=== PATIENT | female | born 1990 | race Asian ===

== ENCOUNTER 2019-02-24 19:19 | Observation (INO) | payer OTHER ==
[2018-07-24 17:15] VITALS: BP 97/64
[~2019-02-24 19:19] MED LIST: DIPH25CA58 PO; NAPR500T8 PO; ONDA4TAB10 SL; OXYC1TAB15 PO; PRED20TA PO
[2019-02-24] MEDS ORDERED: IV RINGERS,LACTATED 1000ML 1,000 ML IV SCH (19:21)
[2019-02-24] MEDS ORDERED: ACETAMINOPHEN 325 MG TABLET. PO PRN (19:30)
[2019-02-24 19:47] LABS: BILIRUBIN,URINE NEGATIVE (NEG); CLARITY,URINE CLEAR; COLOR,URINE YELLOW; NITRITE,URINE NEGATIVE (NEG); PROTEIN,URINE NEGATIVE (NEG-TRACE)
[2019-02-24 19:54] LABS: AMORPHOUS SEDIMENT,UR PRESENT /HPF; BACTERIA,URINE FEW /HPF (0-FEW); SQUAMOUS EPITHELIAL CELL,UR MANY /LPF
[2019-02-24] MEDS ORDERED: hydrOXYzine PAMOATE 25 MG CAPSULE PO ONE (21:30)
== END 2019-02-24 22:15 | disposition home or self-care (01) ==
LOC: 3 SO LND 19:19 → MERGE 19:19
PROVIDERS: ADMIT Specialist; ATTEND Specialist
DX: O62.9 Abnormality of forces of labor, unspecified (principal); O99.89 Other specified diseases and conditions complicating pregnancy, childbirth and the puerperium; M54.9 Dorsalgia, unspecified; Z3A.00 Weeks of gestation of pregnancy not specified
CPT/HCPCS: 81001; 87086; G0378; G0379; J7120; Q0177

== ENCOUNTER 2019-02-25 16:12 | Observation (INO) | payer OTHER ==
[2016-05-24 20:00] VITALS: BP 113/72
[2019-02-25] MEDS ORDERED: IV RINGERS,LACTATED 1000ML 1,000 ML IV SCH (16:59)
[2019-02-25] MEDS ORDERED: hydrOXYzine 25 MG TABLET PO PRN (17:00)
[2019-02-25 17:23] LABS: BILIRUBIN,URINE NEGATIVE (NEG); CLARITY,URINE CLEAR; COLOR,URINE YELLOW; NITRITE,URINE NEGATIVE (NEG); PROTEIN,URINE NEGATIVE (NEG-TRACE); UROBILINOGEN,URINE 0.2 mg/dL (0.2 mg/dL)
[2019-02-25 17:39] LABS: BACTERIA,URINE FEW /HPF (0-FEW); SQUAMOUS EPITHELIAL CELL,UR FEW /LPF; WBC,URINE OCC /HPF (0-4)
== END 2019-02-25 19:30 | disposition home or self-care (01) ==
LOC: 3 SO LND 16:12
PROVIDERS: ADMIT Specialist; ATTEND Specialist
DX: O46.93 Antepartum hemorrhage, unspecified, third trimester (principal); Z3A.38 38 weeks gestation of pregnancy
CPT/HCPCS: 81001; 87086; G0378; G0379; J7120

== ENCOUNTER 2019-03-03 05:45 | Inpatient (IN) | payer OTHER ==
[~2019-03-03] VITALS: Ht 165.1 cm; Wt 73.5 kg
[2019-03-03] VITALS (7 sets, daily range): BP systolic 91–118; BP diastolic 51–71
[2019-03-03] MEDS ORDERED: OXYTOCIN 30 UNIT/500 ML PREMIX 500 ML IV PRN ×2 (06:00→09:00)
[2019-03-03] MEDS ORDERED: CITRIC ACID/SODIUM CITRATE 30 ML SOLUTION. PO ONE (06:00)
[2019-03-03] MEDS ORDERED: 0.9 % SODIUM CHLORIDE 10 ML DISP.SYRIN. IV PRN ×2 (06:00→08:45)
[2019-03-03] MEDS ORDERED: IV RINGERS,LACTATED 1000ML 1,000 ML IV SCH (06:00)
[2019-03-03 06:41] LABS: BILIRUBIN,URINE NEGATIVE (NEG); CLARITY,URINE CLEAR; COLOR,URINE YELLOW; NITRITE,URINE NEGATIVE (NEG); PH,URINE 7.5; PROTEIN,URINE NEGATIVE (NEG-TRACE); UROBILINOGEN,URINE 0.2 mg/dL (0.2 mg/dL)
[2019-03-03 06:48] LABS: BARBITURATES NEG (NEG); BENZODIAZEPINES NEG (NEG); CANNABINOIDS NEG (NEG); COCAINE NEG (NEG); METHADONE NEG (NEG); OPIATES NEG (NEG); PHENCYCLIDINE NEG (NEG)
[2019-03-03 06:53] LABS: AMPHETAMINE/METHAMPHETAMINE NEG (NEG)
[2019-03-03 06:54] LABS: HEMOGLOBIN 11.3 g/dL (12.0-15.5); RED BLOOD COUNT 3.82 x10^6/uL (3.50-5.40); RED CELL DISTRIBUTION WIDTH 12.9 % (11.5-14.5); WHITE BLOOD COUNT 7.8 x10^3/uL (4.0-11.0)
[2019-03-03 06:59] LABS: BACTERIA,URINE MODERATE /HPF (0-FEW); RBC,URINE OCC /HPF (0-2); SQUAMOUS EPITHELIAL CELL,UR MANY /LPF
[2019-03-03] MEDS ORDERED: ceFAZolin 2GM PREMIX 2 GM/50 ML BAG IV ONE (07:14)
[2019-03-03] MEDS: IV RINGERS,LACTATED 1000ML 1,000 ML IV SCH ×4 (07:15→21:29)
[2019-03-03] MEDS ORDERED: FAMOTIDINE 20 MG/2 ML VIAL ONE (07:44)
[2019-03-03] MEDS ORDERED: ePHEDrine PF IN SALINE 50 MG/10 ML SYRINGE. IV ONE (07:44)
[2019-03-03] MEDS ORDERED: PHENYLEPHRINE in 0.9% NACL PF 1 MG/10 ML SYRINGE. IV ONE (07:44)
[2019-03-03] MEDS ORDERED: METOCLOPRAMIDE HCL 10 MG/2 ML VIAL. ONE (07:45)
[2019-03-03] MEDS ORDERED: ONDANSETRON PF 4 MG/2 ML VIAL. ONE (07:45)
[2019-03-03] MEDS ORDERED: DEXAMETHASONE SOD PHOS 4 MG/ML VIAL ONE (07:45)
[2019-03-03] MEDS ORDERED: OXYTOCIN 10 UNIT/ML VIAL. ONE (07:46)
[2019-03-03] MEDS ORDERED: MORPHINE PF 5 MG/10 ML VIAL. ONE (07:47)
[2019-03-03] MEDS ORDERED: fentaNYL PF VIAL 100 MCG/2 ML VIAL ONE (07:47)
--- NOTE | 2019-03-03 08:36 | PDOC1 ---
OB - History Hx of Present Care: Good Care Obstetrical Complications: None Medical Complications: None Past Family/Social History * Past Medical, Surgical, Family and Obstetric Histories reviewed from chart. Blood Type: B+ Rubella: Immune RPR/VDRL: Negative GBS Status: Negative HBsAG: Negative OB - Chief Complaint & HPI Date of Admission: Date of Admission: Mar 03, 2019 at 05:45 Chief Complaint/History : 3 Para: 2 EDC: Mar 10, 2019 Reason for admission: section Indication for : desires repeat Admission Nurse Assessment Rev: Yes OB - Admission Exam Physical Exam Vitals: VS - Last 72 Hours, by Label Date Time Temp Pulse Resp B/P (MAP) Pulse Ox O2 Delivery O2 Flow Rate FiO2 03/03/19 06:29 99.1 69 18 118/71 (87) 98 Room Air 99.1 Heart: Regular Rate Lungs: Clear, Equal Abdomen: Gravid Extremities: Normal Pulses, No tenderness or swelling Reflexes: Normal Effacement: 0% Membranes: Intact Heart Rate: Normal Accelerations: Accelerations Present Decelerations: No decelerations Short Term Variability: Present Contractions on Admission: >10 Minutes Apart Intensity: Mild Assessment/Plan Assessment/Plan TIUP Desire RC/S PRERNA COULTER MD Mar 03, 2019 08:35
[2019-03-03] MEDS ORDERED: MAG HYDROX/ALUMINUM HYD/SIMETH 30 ML ORAL.SUSP PO PRN (08:45)
[2019-03-03] MEDS ORDERED: MAGNESIUM HYDROXIDE 2,400 MG/30 ML ORAL.SUSP. PO PRN (08:45)
[2019-03-03] MEDS ORDERED: diphenhydrAMINE ORAL ELIXIR 12.5 MG/5 ML ML PO PRN (08:45)
[2019-03-03] MEDS ORDERED: ZOLPIDEM 5 MG TABLET. PO PRN (08:45)
[2019-03-03] MEDS ORDERED: ONDANSETRON PF 4 MG/2 ML VIAL. IV PRN (08:45)
[2019-03-03] MEDS ORDERED: MMR per PROTOCOL. MC PRN (08:45)
[2019-03-03] MEDS ORDERED: oxyCODONE/APAP 5/325 1 TAB TABLET PO PRN (08:45)
[2019-03-03] MEDS ORDERED: SIMETHICONE 80 MG TAB.CHEW PO PRN (08:45)
[2019-03-03] MEDS: KETOROLAC 30 MG/ML VIAL. IV PRN ×2 (10:18→22:33)
[2019-03-03] MEDS: IBUPROFEN 400 MG TABLET. PO SCH ×2 (14:00→22:00)
[2019-03-03] MEDS ORDERED: ceFAZolin SODIUM 1 GM in IV DEXTROSE 5% 50 ML IV SCH (14:00)
[2019-03-03] MEDS: ceFAZolin SODIUM IV Push 1 GM VIAL. IVP SCH ×2 (14:12→21:30)
[2019-03-03] MEDS: FERROUS SULFATE 325 MG TABLET. PO SCH (17:00)
[2019-03-04 01:00] VITALS: BP 91/50
[2019-03-04] MEDS: KETOROLAC 30 MG/ML VIAL. IV PRN (04:54)
[2019-03-04 05:25] LABS: BASO % 1 % (0-3); EOS # 0.1 x10^3/uL (0.0-0.7); EOS % 1 % (0-3); HEMATOCRIT 25.2 % (36.0-47.0); HEMOGLOBIN 8.9 g/dL (12.0-15.5); LYMPH # 1.7 x10^3/uL (1.0-4.8); LYMPH % 18 % (24-48); MEAN CORPUSCULAR HEMOGLOBIN 30 pg (25-35); MEAN CORPUSCULAR HGB CONC 35 g/dL (31-37); MEAN CORPUSCULAR VOLUME 84 fL (79-100); MONO # 0.6 x10^3/uL (0.0-1.1); MONO % 7 % (0-9); NEUT # 6.8 x10^3uL (1.8-7.7); NEUT % 74 % (31-73); PLATELET COUNT 137 x10^3/uL (140-400); RED CELL DISTRIBUTION WIDTH 12.8 % (11.5-14.5); WHITE BLOOD COUNT 9.3 x10^3/uL (4.0-11.0)
[2019-03-04] MEDS: IBUPROFEN 400 MG TABLET. PO SCH ×3 (06:00→21:54)
[2019-03-04 06:05] VITALS: BP 102/69
[2019-03-04] MEDS: ceFAZolin SODIUM IV Push 1 GM VIAL. IVP SCH (06:50)
[2019-03-04] MEDS: FERROUS SULFATE 325 MG TABLET. PO SCH ×2 (07:47→17:14)
[2019-03-04] MEDS: DOCUSATE SODIUM 100 MG CAPSULE. PO PRN (07:47)
[2019-03-04] MEDS: oxyCODONE/APAP 5/325 1 TAB TABLET PO PRN ×3 (07:47→17:14)
[2019-03-04 11:30] VITALS: BP 104/68
[2019-03-04 16:13] VITALS: BP 99/62
--- NOTE | 2019-03-04 18:27 | PDOC ---
OB Progress Note Date of Service 03/04/19 Time of Evaluation 1825 Notes Pt. feeling well. No complaints. Lab Laboratory Tests Test 03/03/19 06:00 03/03/19 06:15 03/04/19 04:35 White Blood Count 7.8 x10^3/uL (4.0-11.0) 9.3 x10^3/uL (4.0-11.0) Red Blood Count 3.82 x10^6/uL (3.50-5.40) 3.00 x10^6/uL (3.50-5.40) Hemoglobin 11.3 g/dL (12.0-15.5) 8.9 g/dL (12.0-15.5) Hematocrit 32.0 % (36.0-47.0) 25.2 % (36.0-47.0) Mean Corpuscular Volume 84 fL (79-100) 84 fL (79-100) Mean Corpuscular Hemoglobin 30 pg (25-35) 30 pg (25-35) Mean Corpuscular Hemoglobin Concent 35 g/dL (31-37) 35 g/dL (31-37) Red Cell Distribution Width 12.9 % (11.5-14.5) 12.8 % (11.5-14.5) Platelet Count 162 x10^3/uL (140-400) 137 x10^3/uL (140-400) Treponema pallidum Antibody Nonreactive (Nonreactive) Urine Collection Type Unknown Urine Color Yellow Urine Clarity Clear Urine pH 7.5 Urine Specific Smyer 1.015 Urine Protein Negative mg/dL (NEG-TRACE) Urine Glucose (UA) Negative mg/dL (NEG) Urine Ketones (Stick) Negative mg/dL (NEG) Urine Blood Negative (NEG) Urine Nitrite Negative (NEG) Urine Bilirubin Negative (NEG) Urine Urobilinogen Dipstick 0.2 mg/dL (0.2 mg/dL) Urine Leukocyte Esterase Moderate (NEG) Urine RBC Occ /HPF (0-2) Urine WBC 5-10 /HPF (0-4) Urine Squamous Epithelial Cells Many /LPF Urine Bacteria Moderate /HPF (0-FEW) Urine Mucus Slight /LPF Urine Opiates Screen Neg (NEG) Urine Methadone Screen Neg (NEG) Urine Barbiturates Neg (NEG) Urine Phencyclidine Screen Neg (NEG) Urine Amphetamine/Methamphetamine Neg (NEG) Urine Benzodiazepines Screen Neg (NEG) Urine Cocaine Screen Neg (NEG) Urine Cannabinoids Screen Neg (NEG) Urine Ethyl Alcohol Neg (NEG) Neutrophils (%) (Auto) 74 % (31-73) Lymphocytes (%) (Auto) 18 % (24-48) Monocytes (%) (Auto) 7 % (0-9) Eosinophils (%) (Auto) 1 % (0-3) Basophils (%) (Auto) 1 % (0-3) Neutrophils # (Auto) 6.8 x10^3uL (1.8-7.7) Lymphocytes # (Auto) 1.7 x10^3/uL (1.0-4.8) Monocytes # (Auto) 0.6 x10^3/uL (0.0-1.1) Eosinophils # (Auto) 0.1 x10^3/uL (0.0-0.7) Basophils # (Auto) 0.0 x10^3/uL (0.0-0.2) Laboratory Tests Test 03/04/19 04:35 White Blood Count 9.3 x10^3/uL (4.0-11.0) Red Blood Count 3.00 x10^6/uL (3.50-5.40) Hemoglobin 8.9 g/dL (12.0-15.5) Hematocrit 25.2 % (36.0-47.0) Mean Corpuscular Volume 84 fL (79-100) Mean Corpuscular Hemoglobin 30 pg (25-35) Mean Corpuscular Hemoglobin Concent 35 g/dL (31-37) Red Cell Distribution Width 12.8 % (11.5-14.5) Platelet Count 137 x10^3/uL (140-400) Neutrophils (%) (Auto) 74 % (31-73) Lymphocytes (%) (Auto) 18 % (24-48) Monocytes (%) (Auto) 7 % (0-9) Eosinophils (%) (Auto) 1 % (0-3) Basophils (%) (Auto) 1 % (0-3) Neutrophils # (Auto) 6.8 x10^3uL (1.8-7.7) Lymphocytes # (Auto) 1.7 x10^3/uL (1.0-4.8) Monocytes # (Auto) 0.6 x10^3/uL (0.0-1.1) Eosinophils # (Auto) 0.1 x10^3/uL (0.0-0.7) Basophils # (Auto) 0.0 x10^3/uL (0.0-0.2) Medications Current Medications Ringer's Solution 1,000 ml @ 1,000 mls/hr Q1H IV Last administered on 03/03/19at 06:24; Start 03/03/19 at 06:00; Stop 03/03/19 at 06:59; Status DC Ringer's Solution 1,000 ml @ 125 mls/hr Q8H IV Last administered on 03/03/19at 21:29; Start 03/03/19 at 06:00; Stop 03/04/19 at 15:14; Status DC Cefazolin Sodium/ Dextrose 50 ml @ 100 mls/hr 1X ONCE IV Last administered on 03/03/19at 06:25; Start 03/03/19 at 06:00; Stop 03/03/19 at 06:29; Status DC Citric Acid/ Sodium Citrate (Bicitra) 30 ml 1X ONCE PO Last administered on 03/03/19at 07:12; Start 03/03/19 at 06:00; Stop 03/03/19 at 06:01; Status DC Sodium Chloride (Normal Saline Flush) 3 ml QSHIFT PRN IV AFTER MEDS AND BLOOD DRAWS; Start 03/03/19 at 06:00; Stop 03/04/19 at 15:14; Status DC Oxytocin/Sodium Chloride 500 ml @ 0 mls/hr CONT PRN PRN IV Post delivery bleeding; Start 03/03/19 at 06:00; Stop 03/04/19 at 15:14; Status DC Phenylephrine HCl (PHENYLEPHRINE in 0.9% NACL PF) 1 mg STK-MED ONCE IV ; Start 03/03/19 at 07:44; Stop 03/03/19 at 07:45; Status DC Ephedrine Sulfate (ePHEDrine PF IN SALINE SYRINGE) 50 mg STK-MED ONCE IV ; Start 03/03/19 at 07:44; Stop 03/03/19 at 07:45; Status DC Famotidine (Pepcid Vial) 20 mg STK-MED ONCE .ROUTE ; Start 03/03/19 at 07:44; Stop 03/03/19 at 07:45; Status DC Metoclopramide HCl (Reglan Vial) 10 mg STK-MED ONCE .ROUTE ; Start 03/03/19 at 07:45; Stop 03/03/19 at 07:46; Status DC Ondansetron HCl (Zofran) 4 mg STK-MED ONCE .ROUTE ; Start 03/03/19 at 07:45; Stop 03/03/19 at 07:46; Status DC Dexamethasone Sodium Phosphate (Decadron) 4 mg STK-MED ONCE .ROUTE ; Start 03/03/19 at 07:45; Stop 03/03/19 at 07:46; Status DC Oxytocin (Pitocin) 10 unit STK-MED ONCE .ROUTE ; Start 03/03/19 at 07:46; Stop 03/03/19 at 07:47; Status DC Fentanyl Citrate (Fentanyl 2ml Vial) 100 mcg STK-MED ONCE .ROUTE ; Start 03/03/19 at 07:47; Stop 03/03/19 at 07:48; Status DC Morphine Sulfate (Morphine Preservative Free) 5 mg STK-MED ONCE .ROUTE ; Start 03/03/19 at 07:47; Stop 03/03/19 at 07:48; Status DC Sodium Chloride (Normal Saline Flush) 3 ml QSHIFT PRN IV AFTER MEDS AND BLOOD DRAWS; Start 03/03/19 at 08:45; Status Cancel Oxytocin/Sodium Chloride 500 ml @ 125 mls/hr CONT PRN IV EXCESSIVE POST- BLEEDING; Start 03/03/19 at 09:00; Stop 03/03/19 at 09:01; Status DC Ibuprofen (Motrin) 800 mg Q8HRS PO Last administered on 03/04/19at 12:40; Start 03/03/19 at 14:00 Ondansetron HCl (Zofran) 4 mg PRN Q6HRS PRN IV NAUSEA/VOMITING; Start 03/03/19 at 08:45; Stop 03/04/19 at 15:14; Status DC Docusate Sodium (Colace) 100 mg PRN BID PRN PO HARD STOOLS Last administered on 03/04/19at 07:47; Start 03/03/19 at 08:45 Magnesium Hydroxide (Milk Of Magnesia) 2,400 mg PRN DAILY PRN PO CONSTIPATION; Start 03/03/19 at 08:45 Al Hydroxide/Mg Hydroxide (Mylanta Plus Xs) 30 ml PRN Q4HRS PRN PO HEARTBURN / GAS; Start 03/03/19 at 08:45 Simethicone (Gas-X) 80 mg PRN AFTMEALHC PRN PO GAS / BLOATING; Start 03/03/19 at 08:45 Diphenhydramine HCl (Benadryl Oral Elixir) 12.5 mg PRN Q6HRS PRN PO ITCHING; Start 03/03/19 at 08:45 Ferrous Sulfate (Feosol) 325 mg BIDWMEALS PO Last administered on 03/04/19at 17:14; Start 03/03/19 at 17:00 Zolpidem Tartrate (Ambien) 5 mg PRN QHS PRN PO INSOMNIA, MAY REPEAT X1; Start 03/03/19 at 08:45 Info (Do NOT chart on this placeholder) 1 ea PRN 1X PRN MC SEE COMMENTS; Start 03/03/19 at 08:45; Stop 03/04/19 at 15:14; Status DC Info (Do NOT chart on this placeholder) 1 ea PRN 1X PRN MC SEE COMMENTS; Start 03/03/19 at 08:45; Stop 03/04/19 at 15:14; Status DC Oxycodone/ Acetaminophen (Percocet 5/325) 1 tab PRN Q4HRS PRN PO MILD PAIN 1-3 Last administered on 03/04/19at 17:14; Start 03/03/19 at 08:45 Oxycodone/ Acetaminophen (Percocet 5/325) 2 tab PRN Q4HRS PRN PO MODERATE PAIN, SEVERE PAIN; Start 03/03/19 at 08:45 Cefazolin Sodium 1 gm/Dextrose 50 ml @ 100 mls/hr Q8HRS IV ; Start 03/03/19 at 14:00; Status UNV Cefazolin Sodium (Ancef) 1 gm Q8HRS IVP Last administered on 03/04/19at 06:50; Start 03/03/19 at 14:00; Stop 03/04/19 at 06:01; Status DC Ketorolac Tromethamine (Toradol 30mg Vial) 30 mg PRN Q6HRS PRN IV PAIN Last administered on 03/04/19at 04:54; Start 03/03/19 at 10:15; Stop 03/04/19 at 15:14; Status DC Cefazolin Sodium/ Dextrose (Ancef 2gm Premix) 2 gm STK-MED ONCE IV ; Start 03/03/19 at 07:14; Stop 03/04/19 at 08:43; Status DC Active Scripts Active Zofran Odt (Ondansetron) 4 Mg Tab.rapdis 1 Tab SL Q8HRS Benadryl (Diphenhydramine Hcl) 25 Mg Capsule 25 Mg PO Q6-8HRS PRN Prednisone 20 Mg Tablet 2 Tab PO DAILY PRN Naproxen 500 Mg Tablet.dr 1 Tab PO BID Percocet 5-325 Mg Tablet (Oxycodone/Acetaminophen) 1 Each Tablet 1-2 Tab PO Q4-6HRS Exam Abd: soft, non tender, fundus firm Prevena wound vac in place Assessment POD#1 s/p c/s Plan of Care: Continue current Tx, Mgmt ABHINAV SHAIKH Jr, MD Mar 04, 2019 18:27
[2019-03-04 22:06] VITALS: BP 103/60
[2019-03-05 05:13] VITALS: BP 100/68
[2019-03-05] MEDS: FERROUS SULFATE 325 MG TABLET. PO SCH ×2 (08:40→17:40)
[2019-03-05] MEDS: DOCUSATE SODIUM 100 MG CAPSULE. PO PRN (08:40)
[2019-03-05 09:50] VITALS: BP 90/60
--- NOTE | 2019-03-05 12:36 | PDOC ---
Provider Note Provider Note Doing well VSS Dressing CDI FU in AM PRERNA COULTER MD Mar 05, 2019 12:36
[2019-03-05 14:45] VITALS: BP 105/72
[2019-03-05] MEDS: IBUPROFEN 400 MG TABLET. PO SCH (14:45)
[2019-03-05] MEDS: oxyCODONE/APAP 5/325 1 TAB TABLET PO PRN (15:39)
[2019-03-05 18:16] VITALS: BP 100/76
--- NOTE | 2019-03-05 20:22 | NUR ---
Pt stated she wanted to go outside to smoke in her car, informed nonsmoking facility. Pt unhappy about this as she stated "someone let me do it before". Pt mother says she should be allowed to smoke if she wants. A half hour later pt stated was going down to cafeteria with family.
[2019-03-05 23:05] VITALS: BP 93/58
[2019-03-06] MEDS: IBUPROFEN 400 MG TABLET. PO SCH ×2 (01:04→11:44)
[2019-03-06] MEDS: oxyCODONE/APAP 5/325 1 TAB TABLET PO PRN (01:04)
[2019-03-06 06:13] VITALS: BP 106/65
[2019-03-06 11:30] VITALS: BP 99/68
[2019-03-06] MEDS: DOCUSATE SODIUM 100 MG CAPSULE. PO PRN (11:43)
[2019-03-06] MEDS: FERROUS SULFATE 325 MG TABLET. PO SCH (11:43)
--- NOTE | 2019-03-06 15:39 | PDOC ---
BRIEF OPERATIVE NOTE Date: Mar 03, 2019 Pre-Op Diagnosis TIUP RC/S Post-Op Diagnosis Same Procedure Performed RLTC/S Surgeon Luis F Anesthesia Type: General Blood Loss 700cc Specimens Obtained None Findings Female 7# Nl UTO Complications None PRERNA COULTER MD Mar 06, 2019 15:39
--- NOTE | 2019-03-06 15:41 | PDOC3 ---
OB DISCHARGE SUMMARY DATE OF ADMISSION: 03/03/19 DATE OF DISCHARGE: 03/06/16 REASON FOR ADMISSION: section PROCEDURES: Ultrasound INTRAPARTUM PROCEDURES: : Low Cerv Trans PROCEDURES: None OPERATIONS: None DISCHARGE DIAGNOSIS: Term Delivered DISCHARGE INFORMATION: Activity HOSPITAL COURSE Unremarkable CONDITION AT DISCHARGE Stable PRERNA COULTER MD Mar 06, 2019 15:41
[2019-03-06] MEDS ORDERED: OXYC1TAB15 PO (15:44)
[2019-03-06] MEDS ORDERED: NAPR-514 PO (15:44)
--- NOTE | 2019-03-06 15:47 | NUR ---
Discharge Discharge instructions given to patient and . Prevena dressing removed per DR Kerns, patient tolerated well. Incisional care given at this time. To follow up in 1 week.
[2019-03-06 15:51] VITALS: BP 106/68
--- NOTE | 2019-03-06 20:05 | OP ---
DATE OF SURGERY: 03/03/2019 PREOPERATIVE DIAGNOSIS: Term intrauterine , desires repeat section. POSTOPERATIVE DIAGNOSIS: Repeat section. PROCEDURE: Repeat low transverse . SURGEON: Carlos Kerns M.D. MANUFACTURING PRODUCTION MANAGER: None. ANESTHESIA: Regional. ESTIMATED BLOOD LOSS: 700 mL. FLUIDS: Crystalloids. FINDINGS: Female , Apgars 8, 9 and 9. Weight 7 pounds. Normal uterus, tubes and ovaries. SPECIMENS: None. COMPLICATIONS: None. CONDITION: Stable. DESCRIPTION OF PROCEDURE: After risks, benefits, indications, alternatives discussed in detail with the patient, the patient was brought to OR theater, placed in supine position with left lateral uterine displacement. After adequate regional anesthesia, the patient was prepped and draped in usual sterile manner. Previous Pfannenstiel incision was taken out in total with Bovie cautery. Subcutaneous tissue was taken down with Bovie cautery. Rectus fascia was nicked in midline and extended laterally in each direction with Bovie cautery. Upper edge of rectus fascia was grasped x 2 with Roberta clamps, elevated above the rectus muscle, both bluntly and sharply with Bovie cautery and gloved hand. The same procedure was carried on lower edge of rectus fascia. Rectus muscle was entered sharply with the scalpel secondary to the dense scar tissue at the midline. Parietal peritoneum was entered bluntly with gloved hand. Rectus muscle was taken up superiorly and inferiorly with Bovie cautery. The bladder flap was created with Metzenbaum scissors. The Armando retractor was placed within the pelvic cavity. Sponges were placed in the gutters bilaterally. Low transverse hysterotomy incision was made sharply with the scalpel, extended laterally and upwardly with gloved hand. Gloved hand was placed in the lower uterine segment, used to elevate the head. Secondary to the nature of the , forceps blade was used to place in the lower uterine segment and below the 's head with fundal pressure from the payroll administrative assistant. was delivered on the anterior abdominal wall. Infant cried spontaneously and moved all extremities. Cord was doubly clamped, transected the cord between two clamps. Infant was handed to nursing care in attendance. Cord blood sample was taken. Placenta delivered spontaneously intact, 3-vessel cord. Uterus was wiped free of any adherent membranes. Low transverse hysterotomy incision was reapproximated with 0 Monocryl in a running locking manner, imbricated with 0 Monocryl in vertical mattress stitch fashion. Kareen was placed in the bed of the bladder to prevent any additional oozing. Sponges were removed from the gutters. The area was inspected and noted to be free of any debris or blood. Armando retractor was removed. Rectus muscles reapproximated with 3-0 Vicryl horizontal mattress stitch fashion. Rectus fascia was reapproximated with transfixed 0 PDS. Subcutaneous tissue was irrigated copiously with warm normal saline. Skin was reapproximated with Insorb nicolle. Sponge, needle and instrument counts correct x 2 per nursing staff. CARLOS KERNS MD DR: STEPHENIE/major JOB#: [id number] / [id number]
[2019-03-18] MEDS ORDERED: AMOX1TAB61 PO (08:58)
[2019-03-18] MEDS ORDERED: NAPR-514 PO (08:58)
== END 2019-03-06 18:23 | disposition home or self-care (01) | DRG 787 ==
LOC: 3 SO LND 05:45 → 3 NORTH 11:30
PROVIDERS: ADMIT Specialist; ATTEND Specialist
PROC: 10D00Z1 Extraction of Products of Conception, Low, Open Approach (ICD-10-PCS; principal; 2019-03-06)
DX: O34.211 Maternal care for low transverse scar from previous cesarean delivery (principal); D62 Acute posthemorrhagic anemia; Z37.0 Single live birth; Z3A.00 Weeks of gestation of pregnancy not specified
CPT/HCPCS: 36415; 80307; 81001; 85025; 85027; 86592; 86850; 86900; 86901; 87086; J0171; J0690; J0696; J1100; J1885; J2270; J2370; J2405; J2590; J2765; J3010; J3490; J7120

== ENCOUNTER 2019-03-19 14:37 | Emergency (ER) | payer OTHER ==
[~2019-03-19] VITALS: Ht 162.6 cm; Wt 68.0 kg
[~2019-03-19 14:37] MED LIST changes: +AMOX1TAB61 PO; +NAPR-514 PO
[2019-03-19 14:40] VITALS: BP 125/68
[2019-03-19] MEDS ORDERED: CETIRIZINE HCL 10 MG TABLET. PO STA (15:22)
--- NOTE | 2019-03-19 15:33 | PHYS DOC ---
Past Medical History Past Medical History: No Pertinent History Past Surgical History: Alcohol Use: None Drug Use: None Adult General Chief Complaint Chief Complaint: SKIN RASH/ABSCESS HPI HPI Patient is a 28 year old female who presents to the ED with an itchy rash that begun three days ago. Patient also states she does not know what's causing the rash. She does not speak Azeri either. 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 I looked back through previous charts, patient had a baby on March 03, 2019. On March 16, 2019 she was admitted for mastitis and treated with Augmentin. She was discharged on oxycodone for pain. She states she is no longer on antibiotics. Review of Systems Review of Systems Constitutional: Denies fever or chills [] Musculoskeletal: Denies back pain or joint pain [] Integument: Reports rash Neurologic: Denies headache, focal weakness or sensory changes [] All other systems were reviewed and found to be within normal limits, except as documented in this note. Current Medications Current Medications Current Medications Medications (Trade) Dose Ordered Sig/Valentín Start Time Stop Time Status Last Admin Dose Admin Cetirizine HCl (ZyrTEC) 10 mg 1X STAT 03/19/19 15:22 03/19/19 15:26 DC 03/19/19 15:29 10 MG Famotidine (Pepcid) 20 mg 1X ONCE 03/19/19 16:00 03/19/19 16:01 03/19/19 15:29 20 MG Prednisone (Prednisone) 60 mg 1X ONCE 03/19/19 16:00 03/19/19 16:01 03/19/19 15:29 60 MG Allergies Allergies Allergies Coded Allergies Type Severity Reaction Last Updated Verified No Known Drug Allergies 05/21/16 No Physical Exam Physical Exam Constitutional: Well developed, well nourished, no acute distress, non-toxic appearance. [] Skin: Warm, dry, and she is actively itching, she has moderate amount of erythematous wheals on her back and small amount on her bilateral upper extremities and neck. Chest was not evaluated due to cultural issues. Back: No tenderness, no CVA tenderness. [] Extremities: No tenderness, no cyanosis, no clubbing, ROM intact, no edema. [] Neurologic: Alert and oriented X 3, normal motor function, normal sensory function, no focal deficits noted. [] Psychologic: Affect normal, judgement normal, mood normal. [] Current Patient Data Vital Signs Vital Signs Date Time Temp Pulse Resp B/P (MAP) Pulse Ox O2 Delivery O2 Flow Rate FiO2 03/19/19 14:40 97.2 64 16 125/68 (87) 98 Room Air 97.2 EKG EKG [] Radiology/Procedures Radiology/Procedures [] Course & Med Decision Making Course & Med Decision Making Pertinent Labs and Imaging studies reviewed. (See chart for details) This is a 28-year-old female patient who presents to the ED today with a rash that began 3 days ago after being discharged from the hospital. She was admitted for mastitis, was on Augmentin and oxycodone. I highly suspect one of this medications is the cause of her rash. She is no longer on Augmentin. She still taking the oxycodone. Advised patient to consider taking naproxen for pain and avoid Augmentin. She was discharged with prednisone, Pepcid and Zyrtec. Follow- up with her PCP or shoe packer in 1-2 weeks. Dragon Disclaimer Dragon Disclaimer This electronic medical record was generated, in whole or in part, using a voice recognition dictation system. Departure Departure Impression: Primary Impression: Allergic drug rash Disposition: HOME, SELF-CARE Condition: STABLE Referrals: PRERNA COULTER MD (PCP) follow up in 1 week TERESA PERALTA MD follow up in 1-2 weeks Patient Instructions: Drug Allergy, [id number] Additional Instructions: You evaluated in the emergency room for a rash that is suspicious of drug reaction. Consider not taking oxycodone. You can take the naproxen as needed for pain. Take the rest of the prescribed medications as ordered. Scripts Cetirizine Hcl (ZYRTEC) 10 Mg Tablet 1 TAB PO DAILY, #14 TAB 0 Refills Prov: MELLISA URBINA APRN 03/19/19 Famotidine (FAMOTIDINE) 20 Mg Tablet 20 MG PO DAILY, #7 TAB Prov: MELLISA URBINA APRN 03/19/19 Prednisone (PREDNISONE) 50 Mg Tablet 1 TAB PO DAILY, #5 TAB Prov: MELLISA URBINA COMMERCIAL LITIGATION ASSOCIATE 03/19/19 MELLISA URBINA APRN Mar 19, 2019 15:33
[2019-03-19] MEDS ORDERED: FAMO20TA5 PO (15:39)
[2019-03-19] MEDS ORDERED: PRED50TA PO (15:39)
[2019-03-19] MEDS ORDERED: CETI10TA22 PO (15:39)
[2019-03-19] MEDS ORDERED: predniSONE 20 MG TABLET PO ONE (16:00)
[2019-03-19] MEDS ORDERED: FAMOTIDINE 20 MG TABLET. PO ONE (16:00)
== END 2019-03-19 15:54 | disposition home or self-care (01) ==
LOC: ER 14:37
DX: L27.0 Generalized skin eruption due to drugs and medicaments taken internally (principal); T50.995A Adverse effect of other drugs, medicaments and biological substances, initial encounter; Y92.89 Other specified places as the place of occurrence of the external cause
CPT/HCPCS: 99284; J7512

== ENCOUNTER 2021-08-07 00:19 | Emergency (ER) | payer BC, OTHER ==
[~2021-08-07] VITALS: Ht 152.4 cm; Wt 50.0 kg
[~2021-08-07 00:19] MED LIST changes: +CETI10TA74 PO; +FAMO20TA5 PO; +PRED50TA PO
--- NOTE | 2021-08-07 02:36 | PHYS DOC ---
Past Medical History Past Medical History: No Pertinent History Past Surgical History: Smoking Status: Never Smoker Alcohol Use: None Drug Use: None General Adult EDM: Chief Complaint: ABDOMINAL PAIN HPI: HPI: Patient is a 31-year-old female presenting via POV for indigestion. She is predominantly Kuwaiti speaking only and so robotics specialist is used. Reports this is a chronic problem and has been going on with increased frequency past 2 weeks. Nothing known makes better or worse. Patient reports focal epigastric discomfort that occasionally radiates and causes reflux of stomach contents into mouth. She has no other medical issues, takes no medications on a daily basis. Has prior abdominal surgery with laparoscopic scars and states it is something from her small bowel but cannot describe what. No other known medical issues, no recent trauma, concerning ingestion, sick contact or recent travel Review of Systems: Review of Systems: Fourteen body systems of review of systems have been reviewed. See HPI for pertinent positives and negative responses, other loyd all other systems are negative, non-pertinent or non-contributory Heart Score: C/O Chest Pain: No HEART Score for Chest Pain: HEART Score for Chest Pain Response (Comments) Value History Slighlty/Non-Suspicious 0 ECG Normal 0 Age < 45 0 Risk Factors No Risk Factors 0 Total 0 Risk Factors: Risk Factors: DM, Current or recent (<one month) smoker, HTN, HLP, family history of CAD, obesity. Risk Scores: Score 0 - 3: 2.5% MACE over next 6 weeks - Discharge Home Score 4 - 6: 20.3% MACE over next 6 weeks - Admit for Clinical Observation Score 7 - 10: 72.7% MACE over next 6 weeks - Early Invasive Strategies Allergies: Allergies: Allergies Coded Allergies Type Severity Reaction Last Updated Verified No Known Drug Allergies 05/21/16 No Physical Exam: PE: Constitutional: Well developed, well nourished, no acute distress, non-toxic appearance. HENT: Normocephalic, atraumatic, bilateral external ears normal, oropharynx moist, no oral exudates, nose normal. Eyes: PERRLA, EOMI, conjunctiva normal, no discharge. Neck: Normal range of motion, no tenderness, supple, no stridor. Cardiovascular: Heart rate regular, sinus rhythm, no murmurs rubs or gallops Lungs & Thorax: Bilateral breath sounds clear to auscultation Abdomen: Bowel sounds normal, soft, no tenderness, no masses, no pulsatile masses. Nonsurgical abdomen, no peritoneal signs Skin: Warm, dry, no erythema, no rash. Back: No tenderness, no CVA tenderness. Extremities: No tenderness, no cyanosis, no clubbing, ROM intact, no edema. Neurologic: Alert and oriented X 3, grossly normal motor & sensory function, no focal deficits noted. Psychologic: Affect normal, judgement normal, mood normal. Current Patient Data: Labs: Laboratory Tests Test 08/07/21 02:06 POC Urine HCG, Qualitative Hcg negative (Negative) Vital Signs: Vital Signs Date Time Temp Pulse Resp B/P (MAP) Pulse Ox O2 Delivery O2 Flow Rate FiO2 08/07/21 02:00 98.0 55 16 123/84 (97) 100 98.0 Vital Signs Date Time Temp Pulse Resp B/P (MAP) Pulse Ox O2 Delivery O2 Flow Rate FiO2 08/07/21 02:00 98.0 55 16 123/84 (97) 100 98.0 EKG: EKG: EKG ordered and interpreted by myself at 0251 hrs. is sinus rhythm at 59 bpm, unremarkable intervals, no axis deviation, no acute ischemic findings, no STEMI Radiology/Procedures: Radiology/Procedures: XR CHEST 1V Clinical Indication: Reason: indigestion Comparison: None. Findings: The cardiomediastinal silhouette is normal. Lungs are clear. There is no pneumothorax. No pleural effusion is appreciated. No acute bone abnormality. IMPRESSION: No acute cardiopulmonary process. Electronically signed by: Leroy Reyes MD (08/07/2021 3:50 AM) [facility] Course & Med Decision Making: Course & Med Decision Making ABCs unremarkable. I disclosed entirety of ER findings and discussed most likely diagnosis of indigestion/GERD. Other diagnoses were discussed with patient such as intra-abdominal abnormalities, pneumonia, pancreatitis and other potentially life-threatening diagnoses but all deemed less likely causes of patient's presentation. Patient symptoms totally resolved with ER intervention. Joint decision made to start patient on daily Protonix with close outpatient primary care follow-up with recommendations for GI consultation. Plan of care discussed at length with need for close outpatient follow-up to review today's ER visit stressed. Strict return precautions were also discussed at length with good understanding verbalized by patient. Patient voiced understanding and agreement with the plan. Patient knows to come back for repeat evaluation if concerning signs or symptoms present prior to outpatient follow-up. Hemodynamically stable, ambulatory and well-appearing at time of disposition. Fran Disclaimer: Fran Disclaimer: This electronic medical record was generated, in whole or in part, using a voice recognition dictation system. Departure Departure Impression: Primary Impression: Epigastric abdominal pain Disposition: HOME / SELF CARE / HOMELESS Condition: STABLE Referrals: PRERNA COULTER MD (PCP) Additional Instructions: You were seen for abdominal pain. We are putting you on a medication to reduce your stomach acid levels. You should avoid alcohol, caffeine, spicy foods, or NSAIDs as these can exacerbate your symptoms. You should follow up with the medicine clinic or your primary medical doctor for further evaluation and treatment. Return to the ED if you develop worsening pain, fever, black or bloody stools, or any other new or concerning symptoms. The medicine we started you on can take a few days to work fully. Scripts Pantoprazole Sodium (PROTONIX) 20 Mg Tablet. 1 TAB PO DAILY, #30 TAB Prov: CARROLL SCHUMACHER DO 08/07/21 CARROLL SCHUMACHER DO Aug 07, 2021 02:36
[2021-08-07] MEDS ORDERED: METOCLOPRAMIDE 10 MG TABLET. PO ONE (03:00)
[2021-08-07] MEDS ORDERED: PANTOPRAZOLE 40 MG TABLET.DR. PO ONE (03:00)
[2021-08-07] MEDS ORDERED: LIDO:MAALOX 1:1 20 ML SINGLE DOSE. SWSW ONE (03:00)
--- NOTE | 2021-08-07 03:53 | RAD ---
XR CHEST 1V Clinical Indication: Reason: indigestion Comparison: None. Findings: The cardiomediastinal silhouette is normal. Lungs are clear. There is no pneumothorax. No pleural eff usion is appreciated. No acute bone abnormality. IMPRESSION: No acute cardiopulmonary process. Electronically signed by: Leroy Reyes MD (08/07/2021 3:50 AM) [facility]
[2021-08-07] MEDS ORDERED: PANT20TA2 PO (04:07)
[2021-08-07 04:30] VITALS: BP 115/85
--- NOTE | 2021-08-07 05:21 | EKG ---
[facility] [address] [place] [address] Test Date: 2021-08-07 Test Time: 02:47:29 Pat Name: KORI STRANGE Department: Room: Gender: F [employer]: : [id number] Requested By: CARROLL SCHUMACHER Order Number: [id number] Reading MD: Herb Lewis MD Measurements Intervals Central Rate: 59 P: 41 OR: 134 QRS: 31 QRSD: 88 T: 21 QT: 438 QTc: 438 Interpretive Statements SINUS RHYTHM NON-SPECIFIC ST/T CHANGES Electronically Signed On 08-07-2021 9:00:23 WARDROBE ATTENDANT by Herb Lewis MD
== END 2021-08-07 04:44 | disposition home or self-care (01) ==
LOC: ER 00:19
DX: R10.13 Epigastric pain (principal)
CPT/HCPCS: 71045; 81025; 93005; 99284